=== PATIENT | male | born 1965 | race Caucasian/White ===

== ENCOUNTER 2016-09-29 08:19 | Outpatient (CLI) | payer BC ==
[2016-09-29] VITALS (8 sets, daily range): BP systolic 108–118; BP diastolic 59–78
[~2016-09-29] VITALS: Ht 177.8 cm; Wt 90.7 kg
[2016-09-29] MEDS ORDERED: LIDOCAINE 1% / SOD BICARB 8.4% 20 ML VIAL. IJ ONE (09:00)
[2016-09-29] MEDS ORDERED: MIDAZOLAM HCL 2 MG/2 ML VIAL. ONE ×2 (09:31→09:50)
[2016-09-29] MEDS ORDERED: FENTANYL PF 100 MCG/2 ML VIAL. ONE ×2 (09:31→09:50)
[2016-09-29 09:33] LABS: BASO % 1 % (0-3); EOS % 3 % (0-3); HEMOGLOBIN 15.1 g/dL (13.0-17.5); LYMPH # 1.6 x10^3/uL (1.0-4.8); LYMPH % 34 % (24-48); MEAN CORPUSCULAR HEMOGLOBIN 28 pg (25-35); MEAN CORPUSCULAR HGB CONC 34 g/dL (31-37); MEAN CORPUSCULAR VOLUME 82 fL (79-100); MONO % 9 % (0-9); NEUT % 53 % (31-73); PLATELET COUNT 192 x10^3/uL (140-400); RED BLOOD COUNT 5.47 x10^6/uL (4.30-5.70); RED CELL DISTRIBUTION WIDTH 12.5 % (11.5-14.5); WHITE BLOOD COUNT 4.7 x10^3/uL (4.0-11.0)
[2016-09-29 09:50] LABS: PROTHROMBIN TIME PATIENT 12.5 SEC (11.7-14.0)
--- NOTE | 2016-09-29 10:08 | PDOC ---
BRIEF OPERATIVE NOTE Pre-Op Diagnosis L4/5 discitis/osteomyelitis Post-Op Diagnosis same Procedure Performed L4 and L5 bone biopsies Surgeon Amara Anesthesia Type: Conscious Sedation Specimens Obtained 1 x 10g core from each bone Complications No immediate Additional Remarks Specimens sent for microbiologic analysis including fungal and AFB AUDREY MCCOLLUM MD Sep 29, 2016 10:07
--- NOTE | 2016-09-29 10:09 | PDOC ---
MODERATE SEDATION ASSESSMENT RISKS/ALTERNATIVES Risks/Alternatives Risks and alternatives of this type of sedation and procedure discussed with: RISK/ALTERNATIVES: Patient H & P ON CHART H & P H & P on chart and reviewed for co-morbid conditions and appropriate labs. H&P ON CHART: Yes STATUS PREG STATUS ASSESSED: Yes MEDS/ALLERGIES REVIEWED Meds/Allergies Reviewed Medications and Allergies including time and route of recently administered narcotics and sedatives. MEDS/ALLERGIES REVIEWED: Yes ASA RATING ASA RATING: II AIRWAY ASSESSMENT Airway Assessment Airway patency, oral function limitations, presence of caps, crowns, dentures, partials, and ability to extend neck assessed. AIRWAY ASSESSMENT: Yes MALLAMPATI SCORE MALLAMPATI SCORE: II PRE-SEDATION ASSESSMENT PRE-SEDATION ASSESSMENT: Yes AUDREY MCCOLLUM MD Sep 29, 2016 10:09
--- NOTE | 2016-09-29 10:09 | PDOC1 ---
History and Physical Date of Procedure Date of Admission History of Present Illness Reason for Visit L4/5 discitis/osteomyelitis Past Medical History Past Medical History see nursing pre-op assessment Current Medications Current Medications Current Medications Lidocaine/Sodium Bicarbonate (Buffered Lidocaine 1%) 20 ml 1X ONCE IJ ; Start 09/29/16 at 09:00; Stop 09/29/16 at 09:01; Status DC Midazolam HCl (Versed) 2 mg STK-MED ONCE .ROUTE ; Start 09/29/16 at 09:31; Stop 09/29/16 at 09:32; Status DC Fentanyl Citrate (Fentanyl 2ml Vial) 100 mcg STK-MED ONCE .ROUTE ; Start at 09:31; Stop 09/29/16 at 09:32; Status DC Fentanyl Citrate (Fentanyl 2ml Vial) 100 mcg STK-MED ONCE .ROUTE ; Start at 09:50; Stop 09/29/16 at 09:51; Status DC Midazolam HCl (Versed) 2 mg STK-MED ONCE .ROUTE ; Start 09/29/16 at 09:50; Stop 09/29/16 at 09:51; Status DC Midazolam HCl (Versed) 3 mg 1X ONCE IV ; Start 09/29/16 at 10:15; Stop 09/29/16 at 10:16 Fentanyl Citrate (Fentanyl 2ml Vial) 150 mcg 1X ONCE IV ; Start 09/29/16 at 10: 15; Stop 09/29/16 at 10:16 Allergies Allergies: Coded Allergies: No Known Drug Allergies (Unverified , 09/29/16) Physical Exam Vital Signs Vital Signs Date Time Temp Pulse Resp B/P Pulse Ox O2 Delivery O2 Flow Rate FiO2 09/29/16 09:09 98.1 58 16 116/78 98 Room Air 98.1 Other see nursing pre-op assessment Assessment Assessment L4/5 discitis/osteomyelitis Problems: Plan Plan Fluoro guided bx of L4 and L5 AUDREY MCCOLLUM MD Sep 29, 2016 10:09
[2016-09-29] MEDS ORDERED: FENTANYL PF 100 MCG/2 ML VIAL. IV ONE (10:15)
[2016-09-29] MEDS ORDERED: MIDAZOLAM HCL 2 MG/2 ML VIAL. IV ONE (10:15)
[2016-09-29] MEDS ORDERED: TRAM50TA PO (11:27)
[2016-09-29] MEDS ORDERED: BISO5TAB2 PO (11:27)
--- NOTE | 2016-09-29 14:47 | RAD ---
Procedure: Fluoroscopic guided bone biopsy of L4 and L5 Clinical Indication: 51-year-old with discitis osteomyelitis at these levels Sedation: Conscious sedation was administered for 32 minutes. The patient was monitored by a qualified independent observer throughout the time of sedation. Please refer to the medical record for exact doses of medications utilized to achieve moderate sedation. Antibiotics: None Exposure: Kerma-Area Product: 25 Gycm2 Contrast: None Sterility: All elements of maximal sterile barrier technique including the use of a cap, mask, sterile gown, sterile gloves, large sterile sheet, appropriate hand hygiene, and 2% chlorhexidine for cutaneous antisepsis (or acceptable alternative antiseptic per current guidelines) were followed for this procedure. Consent: The procedure was explained in its entirety to the patient or the patients designated players club representative by a member of the treatment team, including a discussion of the risks, benefits and commonly accepted alternatives to the procedure, as well as the expected consequences of no therapy whatsoever. Discussion of the risks included, but was not limited to, those that are most frequent and those that are rare but possibly severe or life-threatening, as well as the possibility of unforeseen complications. Technique and Findings: Following informed consent, the patient was prepped and draped in usual sterile fashion. 1% lidocaine was used to achieve local anesthesia over the paraspinal soft tissues at both levels. A small dermatotomy was made in each location and a 10-gauge automated bone biopsy probe was advanced first in the right transpedicular fashion at L4. A single 10-gauge core bone biopsy of the inferior aspect of this vertebral body was then obtained and preserved in nonbacteriostatic sterile saline for microbiologic analysis. A new 10-gauge automated bone biopsy device was then advanced in a left transpedicular fashion at L5 and a single 10-gauge bone biopsy core of the superior endplate of L5 was obtained and also preserved in a similar fashion. Hemostasis was achieved with manual compression both locations. Complications: No immediate impression: 1. Fluoroscopic guided biopsy of L4 and of fluoroscopic biopsy of L5 as described
== END 2016-09-29 11:58 | disposition home or self-care (01) ==
LOC: INTRAD 08:19
PROVIDERS: ATTEND Neurological Surgery
DX: M46.46 Discitis, unspecified, lumbar region (principal); I10 Essential (primary) hypertension; M86.9 Osteomyelitis, unspecified; M19.90 Unspecified osteoarthritis, unspecified site; Z87.891 Personal history of nicotine dependence; Z79.01 Long term (current) use of anticoagulants
CPT/HCPCS: 20225; 36415; 76942; 85027; 85610; 87071; 87075; 87102; 87116; 87205; C1892; J2250; J3010